=== PATIENT | male | born 1995 | race Caucasian/White ===

== ENCOUNTER 2016-12-29 23:54 | Emergency (ER) | payer OTHER ==
[2016-12-30] MEDS ORDERED: SODIUM CHLORIDE 0.9% 1,000 ML IV STA (00:15)
[2016-12-30 00:33] LABS: Basophils # (A) 0.1 k/uL (0-0.2); Basophils % (A) 1 %; CH 33.3; CHCM 36.4; Eosinophils % (A) 1 %; HCT 54.8 % (39.0-53.0); HDW 2.51; HGB 18.6 gm/dL (13.0-17.5); Luc % (Auto) 1; Lymphocytes # (A) 1.7 k/uL (1.0-4.8); Lymphocytes % (A) 20 %; MCH 31.2 pg (25.0-35.0); MCV 91.9 fL (80.0-100.0); Mean Platelet Volume 8.5; Monocytes # (A) 0.4 k/uL (0-1.0); Monocytes % (A) 5 %; Neutrophils # (A) 6.1 k/uL (1.3-7.7); Neutrophils % (A) 73 %; RBC 5.96 m/uL (4.30-5.90); RDW 13.7 % (11.5-15.5); WBC 8.4 k/uL (3.8-10.6); WBC (Perox) 8.07
[2016-12-30 00:40] LABS: Anion Gap 14 mmol/L; Blood Urea Nitrogen 8 mg/dL (9-20); Calcium 9.1 mg/dL (8.4-10.2); Carbon Dioxide 20 mmol/L (22-30); Chloride 105 mmol/L (98-107); Glucose 114 mg/dL (74-99); Magnesium 1.9 mg/dL (1.6-2.3); Non-African American GFR(MDRD) >60 (>60 ml/min/1.73 sqM); Potassium 3.7 mmol/L (3.5-5.1); Sodium 139 mmol/L (137-145); Total Protein 6.3 g/dL (6.3-8.2)
[2016-12-30 00:41] LABS: ALT 24 U/L (21-72); AST 21 U/L (17-59); Alkaline Phosphatase 39 U/L (38-126); Total Bilirubin 0.7 mg/dL (0.2-1.3)
[2016-12-30 00:46] LABS: INR 1.2 (<1.2); Partial Thromboplastin Time 22.2 sec (22.0-30.0); Prothrombin Time 11.6 sec (9.0-12.0)
[2016-12-30 00:52] LABS: Creatine Kinase 86 U/L (55-170)
[2016-12-30 01:05] LABS: Creatine Kinase MB 0.6 ng/mL (0.0-2.4); Troponin I <0.012 ng/mL (0.000-0.034)
--- NOTE | 2016-12-30 01:10 | XR ---
EXAM: XR Chest, 1 View CLINICAL HISTORY: Reason: chest pain TECHNIQUE: Frontal view of the chest. COMPARISON: No relevant prior studies available. FINDINGS: Lungs: Unremarkable. No consolidation. Pleural space: Unremarkable. No pneumothorax. Heart: Unremarkable. No cardiomegaly. Mediastinum: Unremarkable. Bones/joints: Unremarkable. IMPRESSION: Unremarkable chest x-ray.
[2016-12-30] MEDS ORDERED: RX INFO: IV CONTRAST WAS GIVEN 1 EACH MISC MISCELLANE PRN (01:59)
[2016-12-30 02:53] VITALS: RESP 18
--- NOTE | 2016-12-30 03:05 | CT ---
EXAM: CT Angiography Chest With Intravenous Contrast CLINICAL HISTORY: Reason: Pain TECHNIQUE: Axial computed tomographic angiography images of the chest with intravenous contrast using pulmonary embolism protocol. CTDI is 48.2 mGy and DLP is 182.3 mGy-cm. This CT exam was performed using one or more of the following dose reduction techniques: automated exposure control, adjustment of the mA and/or kV according to patient size, and/or use of iterative reconstruction technique. MIP reconstructed images were created and reviewed. Coronal and sagittal reformatted images were created and reviewed. COMPARISON: Chest x-ray dated 12/30/16. FINDINGS: Pulmonary arteries: Unremarkable. No pulmonary embolism. Aorta: No acute findings. No thoracic aortic aneurysm. Lungs: Biapical scarring. No mass. No consolidation. Pleural space: Unremarkable. No significant effusion. No pneumothorax. Heart: Unremarkable. No cardiomegaly. No significant pericardial effusion. No evidence of RV dysfunction. Bones/joints: Mild Schmorl's node formation. Mild S-shaped curvature to the upper thoracic spine. No acute fracture. No dislocation. Soft tissues: Unremarkable. Lymph nodes: Unremarkable. No enlarged lymph nodes. IMPRESSION: No evidence for pulmonary embolus or other acute cardiopulmonary findings.
[2016-12-30 03:56] VITALS: BP 145/82; PULSE 98
--- NOTE | 2016-12-30 04:16 | ED ---
Chest Pain HPI - General Chief Complaint: Chest Pain Stated Complaint: chest pain Time Seen by Provider: 12/30/16 00:15 Source: patient Mode of arrival: wheelchair Limitations: no limitations - History of Present Illness Initial Comments: This patient is a 19-year-old man who states that about hour ago he experienced a funny sensation in the substernal area of his chest, he is not able fully characterize it. Patient states there is no pain currently. MD Complaint: chest pain Onset/Timin -: hour(s) Onset: during rest Pain Location: substernal Pain Radiation: none Severity: mild Quality: other (Unable to characterize) Consistency: intermittent, now resolved Improves With: nothing Worsens With: nothing - Related Data Previous Rx's Medication Instructions Recorded Amoxicillin 500 mg PO Q8H #21 capsule 01/31/15 Clarithromycin [Biaxin] 500 mg PO Q12HR #14 tablet 01/31/15 Famotidine [Pepcid] 20 mg PO DAILY #60 tablet 01/31/15 Omeprazole [PriLOSEC] 20 mg PO AC-BID #60 cap 01/31/15 Famotidine [Pepcid] 20 mg PO DAILY #14 tablet 12/30/16 Allergies Allergy/AdvReac Type Severity Reaction Status Date / Time Sulfa (Sulfonamide Allergy Unknown Verified 01/31/15 14:07 Antibiotics) Review of Systems ROS Statement: Those systems with pertinent positive or pertinent negative responses have been documented in the HPI. ROS Other: All systems not noted in ROS Statement are negative. Constitutional: Denies: fever, chills Respiratory: Denies: cough, dyspnea Cardiovascular: Reports: as per HPI, chest pain, palpitations. Denies: edema, syncope Gastrointestinal: Denies: abdominal pain, nausea, vomiting Genitourinary: Denies: dysuria Musculoskeletal: Denies: back pain Skin: Denies: rash Neurological: Denies: headache, weakness, numbness Past Medical History Past Medical History: No Reported History History of Any Multi-Drug Resistant Organisms: None Reported Past Surgical History: No Surgical Hx Reported Past Psychological History: No Psychological Hx Reported Smoking Status: Current every day smoker Past Alcohol Use History: Occasional Past Drug Use History: Marijuana General Exam Limitations: no limitations General appearance: alert, in no apparent distress Head exam: Present: atraumatic, normocephalic Eye exam: Present: normal appearance Respiratory exam: Present: normal lung sounds bilaterally. Absent: respiratory distress, wheezes, rales, rhonchi, stridor Cardiovascular Exam: Present: regular rate, normal rhythm, normal heart sounds. Absent: systolic murmur, diastolic murmur, rubs, gallop GI/Abdominal exam: Present: soft. Absent: distended, tenderness, guarding, rebound Extremities exam: Present: normal inspection, normal capillary refill. Absent: pedal edema, calf tenderness Back exam: Present: normal inspection. Absent: CVA tenderness (R), CVA tenderness (L) Skin exam: Present: warm, dry, intact, normal color. Absent: rash Course Vital Signs 12/29/16 12/30/16 12/30/16 23:57 01:22 02:47 Temperature 97.1 F L Pulse Rate 137 H 108 H 104 H Respiratory 18 16 18 Rate Blood Pressure 129/79 132/66 133/72 O2 Sat by Pulse 100 100 99 Oximetry 12/30/16 12/30/16 03:54 04:23 Temperature 98.6 F Pulse Rate 98 98 Respiratory 18 18 Rate Blood Pressure 145/82 145/82 O2 Sat by Pulse 98 98 Oximetry Disposition Clinical Impression: Chest pain Disposition: HOME SELF-CARE Condition: Good Instructions: Chest Pain (ED) Prescriptions: Famotidine [Pepcid] 20 mg PO DAILY #14 tablet Referrals: None,Stated [Primary Care Provider] - 1-2 days
[2016-12-30 04:26] VITALS: TEMP 98.6
--- NOTE | 2017-01-03 07:18 | CDI ---
Documentation Clarification OP Dear Alex RAHMAN MD Please do addendum to ED report for HPI and physical exam. Thank you, Julieta Abernathy [employer] If you have any question, Please contact digital asset manager at [phone] [facility]
== END 2016-12-30 04:23 | disposition home or self-care (01) ==
LOC: MERGE 23:54 → EC 23:54
DX: R07.2 Precordial pain (principal); F17.200 Nicotine dependence, unspecified, uncomplicated; Z88.2 Allergy status to sulfonamides
CPT/HCPCS: 36415; 93005; 85379; 80053; 82550; 82553; 83735; 84484; 85025; 85610; 85730; 80306; 71010; 71275; 99285; 96360; Q9967

== ENCOUNTER 2019-01-17 21:53 | Emergency (ER) | payer OTHER ==
[2019-01-17] MEDS ORDERED: cefTRIAXone 250 MG VIAL IM STA (22:03)
[2019-01-17] MEDS ORDERED: AZITHROMYCIN 500 MG TAB PO STA (22:03)
--- NOTE | 2019-01-17 22:09 | ED ---
General Adult HPI - General Chief complaint: Back Pain/Injury Stated complaint: Abd Pain Time Seen by Provider: 01/17/19 21:59 Source: patient, RN notes reviewed, old records reviewed Mode of arrival: ambulatory Limitations: no limitations - History of Present Illness Initial comments: 23-year-old male patient with no pertinent past medical history is ED chief complaint of 2 days of dysuria, pain into his posterior low back. Patient does have some concern for possible STD. Denies any urethral drainage, denies any lesions or skin changes. Denies any hematuria. Systemic: Pt denies fatigue, fever/chills, rash. Pt denies weakness, night sweats, weight loss. Neuro: Pt denies headache, visual disturbances, syncope or pre-syncope. HEENT: Pt denies ocular discharge or irritation, otalgia, rhinorrhea, pharyngitis or notable lymphadenopathy. Cardiopulmonary: Pt denies chest pain, SOB, heart palpitations, dyspnea on exertion. Abdominal/GI: Pt denies abdominal pain, n/v/d. : Pt denies dysuria, burning w/ urination, frequency/urgency. Denies new onset urinary or bowel incontinence. MSK: Pt denies myalgia, loss of strength or function in extremities. Neuro: Pt denies new onset weakness, paresthesias. - Related Data Previous Rx's Medication Instructions Recorded Amoxicillin 500 mg PO Q8H #21 capsule 01/31/15 Clarithromycin [Biaxin] 500 mg PO Q12HR #14 tablet 01/31/15 Famotidine [Pepcid] 20 mg PO DAILY #60 tablet 01/31/15 Omeprazole [PriLOSEC] 20 mg PO AC-BID #60 cap 01/31/15 Famotidine [Pepcid] 20 mg PO DAILY #14 tablet 12/30/16 Allergies Allergy/AdvReac Type Severity Reaction Status Date / Time Sulfa (Sulfonamide Allergy Unknown Verified 01/17/19 21:57 Antibiotics) Review of Systems ROS Statement: Those systems with pertinent positive or pertinent negative responses have been documented in the HPI. ROS Other: All systems not noted in ROS Statement are negative. Past Medical History Past Medical History: No Reported History, Seizure Disorder Additional Past Medical History / Comment(s): Ulcer History of Any Multi-Drug Resistant Organisms: None Reported Past Surgical History: Ear Surgery, No Surgical Hx Reported Past Psychological History: No Psychological Hx Reported Smoking Status: Former smoker Past Alcohol Use History: Heavy, Occasional Past Drug Use History: Marijuana General Exam - General Exam Comments Initial Comments: Constitutional: NAD, AOX3, Pt has pleasant affect. HEENT: NC/AT, trachea midline, neck supple, no lymphadenopathy. Posterior pharynx non erythematous, without exudates. External ears appear normal, without discharge. Mucous membranes moist. Eyes PERRLA, EOM intact. There is no scleral icterus. No pallor noted. Cardiopulmonary: RRR, no murmurs, rubs or gallops, no JVD noted. Lungs CTAB in anterior and posterior mandujano. No peripheral edema. Abdominal exam: Abdomen soft and non-distended. Abdomen non-tender to palpation in all 4 quadrants. Bowel sounds active in LLQ. No hepatosplenomegaly. No ecchymosis. No CVA tenderness. Neuro: CN II-XII grossly intact. No nuchal rigidity. No raccon eyes, no kumar sign, no hemotympanum. No cervical spinal tenderness. MSK: No posterior calf tenderness bilaterally, homans sign negative bilaterally. Posterior tibialis and radial pulse +2 bilaterally. Sensation intact in upper and lower extremities. Full active ROM in upper and lower extremities, 5/5 stregnth. Limitations: no limitations Course Vital Signs 01/17/19 21:55 Temperature 98.1 F Pulse Rate 99 Respiratory 20 Rate Blood Pressure 163/108 O2 Sat by Pulse 97 Oximetry Medical Decision Making - Medical Decision Making 23-year-old male patient presents ED chief complaint of dysuria. No low back pain. Patient vital signs stable, afebrile. Physical exam did not display acute pathology. UA displayed 20 white blood cells, small leukocyte esterase. Patient was treated empirically for gonorrhea and Chlamydia. Futher history taking patient reports that he had a recent sexual encounter with an individual who he does not know well and experienced the dysuria shortly after. Urine culture pending. Patient will discharge, follow up with primary care provider. Case discussed with Dr. Arboleda. - Lab Data Lab Results 01/17/19 Range/Units 22:35 Urine Color Light Yellow Urine Appearance Clear (Clear) Urine pH 6.0 (5.0-8.0) Ur Specific [place] 1.007 (1.001-1.035) Urine Protein Negative (Negative) Urine Glucose (UA) Negative (Negative) Urine Ketones Negative (Negative) Urine Blood Negative (Negative) Urine Nitrite Negative (Negative) Urine Bilirubin Negative (Negative) Urine Urobilinogen <2.0 (<2.0) mg/dL Ur Leukocyte Esterase Small H (Negative) Urine RBC <1 (0-5) /hpf Urine WBC 20 H (0-5) /hpf Disposition Clinical Impression: Dysuria Disposition: HOME SELF-CARE Condition: Stable Instructions (If sedation given, give patient instructions): Dysuria (ED) Additional Instructions: Patient to adhere to previously discussed treatment plan and will take medication(s) as directed. Patient to follow up with PCP in 1-2 days. Patient to return to ED if symptoms do not improve. Follow-up with primary care provider, return to ER if condition worsens. Is patient prescribed a controlled substance at d/c from ED?: No Referrals: Dora Randall MD [Primary Care Provider] - 1-2 days
--- NOTE | 2019-01-17 22:37 | XR ---
EXAM: XR Abdomen, 1 View CLINICAL HISTORY: ITS.REASON XR Reason: Pain TECHNIQUE: Frontal supine view of the abdomen/pelvis. COMPARISON: No relevant prior studies available. FINDINGS: Gastrointestinal tract: Unremarkable. No dilation. Small phlebolith in the left pelvis. Bones/joints: Unremarkable. IMPRESSION: No acute disease or bowel obstruction.
[2019-01-17 22:48] LABS: Appearance,Urine Clear (Clear); Bilirubin,Urine Negative (Negative); Blood,Urine Negative (Negative); Color,Urine Light Yellow; Glucose,Urine (UA) Negative (Negative); Ketones,Urine Negative (Negative); Leukocyte Esterase,Urine Small (Negative); Nitrite,Urine Negative (Negative); Protein,Urine Negative (Negative); RBC,Urine <1 /hpf (0-5); Specific Gravity,Urine 1.007 (1.001-1.035); Urobilinogen,Urine <2.0 mg/dL (<2.0); WBC,Urine 20 /hpf (0-5)
[2019-01-17 23:22] VITALS: BP 146/97; PULSE 79; RESP 18; TEMP 98.8
== END 2019-01-17 23:21 | disposition home or self-care (01) ==
LOC: EC 21:53
DX: R30.0 Dysuria (principal); R82.998 Other abnormal findings in urine; Z87.891 Personal history of nicotine dependence; Z88.2 Allergy status to sulfonamides
CPT/HCPCS: 81001; 87491; 87591; 74018; 99284; 96372; J0696

== ENCOUNTER 2019-05-30 17:11 | Emergency (ER) | payer OTHER ==
--- NOTE | 2019-05-30 20:44 | ED ---
General Adult HPI - General Chief complaint: GI Bleed Stated complaint: blood in stool Time Seen by Provider: 05/30/19 19:15 Source: patient, RN notes reviewed, old records reviewed Mode of arrival: ambulatory Limitations: no limitations - History of Present Illness Initial comments: 24-year-old male patient with past mental history of reported GERD and seizure disorder presents to ED for chief complaint rectal bleeding. Patient reports that he is no longer on any antiepileptics, but slowly no longer needed them. Reports that approximately 2 to get a small amount of blood in his stool. Patient reports that today while at work he had a bowel movement and noticed red blood. Blood with wiping as well as blood on stool. Patient does report he has history of hemorrhoids. Reports he had a very mild amount of epigastric abdominal pain earlier today however that has resolved at this point. Denies any other complaints at this time. Systemic: Pt denies fatigue, fever/chills, rash. Pt denies weakness, night sweats, weight loss. Neuro: Pt denies headache, visual disturbances, syncope or pre-syncope. HEENT: Pt denies ocular discharge or irritation, otalgia, rhinorrhea, pharyngitis or notable lymphadenopathy. Cardiopulmonary: Pt denies chest pain, SOB, heart palpitations, dyspnea on exertion. Abdominal/GI: Pt denies n/v/d. : Pt denies dysuria, burning w/ urination, frequency/urgency. Denies new onset urinary or bowel incontinence. MSK: Pt denies myalgia, loss of strength or function in extremities. Neuro: Pt denies new onset weakness, paresthesias. - Related Data Previous Rx's Medication Instructions Recorded Amoxicillin 500 mg PO Q8H #21 capsule 01/31/15 Clarithromycin [Biaxin] 500 mg PO Q12HR #14 tablet 01/31/15 Famotidine [Pepcid] 20 mg PO DAILY #60 tablet 01/31/15 Omeprazole [PriLOSEC] 20 mg PO AC-BID #60 cap 01/31/15 Famotidine [Pepcid] 20 mg PO DAILY #14 tablet 12/30/16 Allergies Allergy/AdvReac Type Severity Reaction Status Date / Time Sulfa (Sulfonamide Allergy Unknown Verified 01/17/19 21:57 Antibiotics) Review of Systems ROS Statement: Those systems with pertinent positive or pertinent negative responses have been documented in the HPI. ROS Other: All systems not noted in ROS Statement are negative. Past Medical History Past Medical History: No Reported History, Seizure Disorder Additional Past Medical History / Comment(s): Ulcer History of Any Multi-Drug Resistant Organisms: None Reported Past Surgical History: Ear Surgery, No Surgical Hx Reported Past Psychological History: No Psychological Hx Reported Smoking Status: Former smoker Past Alcohol Use History: Heavy, Occasional Past Drug Use History: Marijuana General Exam - General Exam Comments Initial Comments: Constitutional: NAD, AOX3, Pt has pleasant affect. HEENT: NC/AT, trachea midline, neck supple, no lymphadenopathy. Posterior pharynx non erythematous, without exudates. External ears appear normal, without discharge. Mucous membranes moist. Eyes PERRLA, EOM intact. There is no scleral icterus. No pallor noted. Cardiopulmonary: RRR, no murmurs, rubs or gallops, no JVD noted. Lungs CTAB in anterior and posterior mandujano. No peripheral edema. Abdominal exam: Abdomen soft and non-distended. Abdomen non-tender to palpation in all 4 quadrants. Bowel sounds active in LLQ. No hepatosplenomegaly. No ecchymosis Neuro: CN II-XII grossly intact. No nuchal rigidity. No raccon eyes, no kumar sign, no hemotympanum. No cervical spinal tenderness. MSK: No posterior calf tenderness bilaterally, homans sign negative bilaterally. Posterior tibialis and radial pulse +2 bilaterally. Sensation intact in upper and lower extremities. Full active ROM in upper and lower extremities, 5/5 stregnth. Rectal: Rectal exam displayed internal hemorrhoid, no fissures noted, no bright red blood noted. Limitations: no limitations Course Vital Signs 05/30/19 17:59 Temperature 98.6 F Pulse Rate 89 Respiratory 18 Rate Blood Pressure 129/91 O2 Sat by Pulse 99 Oximetry Medical Decision Making - Medical Decision Making 24-year-old male patient with past mental history of reported GERD and seizure disorder presents to ED for chief complaint rectal bleeding. Patient reports that he is no longer on any antiepileptics, but slowly no longer needed them. Reports that approximately 2 to get a small amount of blood in his stool. Patient reports that today while at work he had a bowel movement and noticed red blood. Blood with wiping as well as blood on stool. Patient does report he has history of hemorrhoids. Reports he had a very mild amount of epigastric abdominal pain earlier today however that has resolved at this point. Denies any other complaints at this time. Patient vital signs stable. Physical exam displayed nontender abdomen, internal hemorrhoid noted. Other investigation are stable hemoglobin is 15. Called his positive. Patient will be discharged with outpatient surgical follow-up for internal hemorrhoid. Return to ER if condition worsens. Case discussed with Dr. Kearns. - Lab Data Result diagrams: 05/30/19 19:32 05/30/19 19:32 Lab Results 05/30/19 05/30/19 05/30/19 Range/Units 19:32 19:32 20:35 WBC 7.1 (3.8-10.6) k/uL RBC 5.07 (4.30-5.90) m/uL Hgb 15.4 (13.0-17.5) gm/dL Hct 45.9 (39.0-53.0) % MCV 90.5 (80.0-100.0) fL MCH 30.4 (25.0-35.0) pg MCHC 33.6 (31.0-37.0) g/dL RDW 11.3 L (11.5-15.5) % Plt Count 187 (150-450) k/uL Neutrophils % 66 % Lymphocytes % 24 % Monocytes % 5 % Eosinophils % 1 % Basophils % 1 % Neutrophils # 4.7 (1.3-7.7) k/uL Lymphocytes # 1.7 (1.0-4.8) k/uL Monocytes # 0.4 (0-1.0) k/uL Eosinophils # 0.1 (0-0.7) k/uL Basophils # 0.1 (0-0.2) k/uL Sodium 139 (137-145) mmol/L Potassium 4.3 (3.5-5.1) mmol/L Chloride 102 (98-107) mmol/L Carbon Dioxide 30 (22-30) mmol/L Anion Gap 7 mmol/L BUN 12 (9-20) mg/dL Creatinine 0.76 (0.66-1.25) mg/dL Est GFR (CKD-EPI)AfAm >90 (>60 ml/min/1.73 sqM) Est GFR (CKD-EPI)NonAf >90 (>60 ml/min/1.73 sqM) Glucose 91 (74-99) mg/dL Calcium 9.0 (8.4-10.2) mg/dL Total Bilirubin 0.6 (0.2-1.3) mg/dL AST 30 (17-59) U/L ALT 26 (4-49) U/L Alkaline Phosphatase 40 (38-126) U/L Total Protein 7.3 (6.3-8.2) g/dL Albumin 4.5 (3.5-5.0) g/dL Lipase 72 (23-300) U/L Stool Occult Blood Positive (Negative) Disposition Clinical Impression: Internal hemorrhoid Disposition: HOME SELF-CARE Condition: Stable Instructions (If sedation given, give patient instructions): Hemorrhoids (ED) Additional Instructions: Follow-up with primary care provider tomorrow. Follow-up with surgical consult tomorrow. Return to ER if condition worsens in any way. Is patient prescribed a controlled substance at d/c from ED?: No Referrals: Dora Randall MD [Primary Care Provider] - 1-2 days Kobe Hayden DO [Doctor of Osteopathic Medicine] - 1-2 days
[2019-05-30 20:47] LABS: Basophils # (A) 0.1 k/uL (0-0.2); Basophils % (A) 1 %; Eosinophils # (A) 0.1 k/uL (0-0.7); Eosinophils % (A) 1 %; HCT 45.9 % (39.0-53.0); HGB 15.4 gm/dL (13.0-17.5); Lymphocytes # (A) 1.7 k/uL (1.0-4.8); Lymphocytes % (A) 24 %; MCH 30.4 pg (25.0-35.0); MCHC 33.6 g/dL (31.0-37.0); MCV 90.5 fL (80.0-100.0); Monocytes # (A) 0.4 k/uL (0-1.0); Monocytes % (A) 5 %; Neutrophils # (A) 4.7 k/uL (1.3-7.7); Neutrophils % (A) 66 %; Platelet Count 187 k/uL (150-450); RBC 5.07 m/uL (4.30-5.90); RDW 11.3 % (11.5-15.5); WBC 7.1 k/uL (3.8-10.6)
[2019-05-30 20:55] LABS: ALT 26 U/L (4-49); AST 30 U/L (17-59); African American GFR (CKD) >90 (>60 ml/min/1.73 sqM); Albumin 4.5 g/dL (3.5-5.0); Alkaline Phosphatase 40 U/L (38-126); Anion Gap 7 mmol/L; Blood Urea Nitrogen 12 mg/dL (9-20); Carbon Dioxide 30 mmol/L (22-30); Chloride 102 mmol/L (98-107); Glucose 91 mg/dL (74-99); Non-African American GFR(CKD) >90 (>60 ml/min/1.73 sqM); Potassium 4.3 mmol/L (3.5-5.1); Sodium 139 mmol/L (137-145); Total Bilirubin 0.6 mg/dL (0.2-1.3); Total Protein 7.3 g/dL (6.3-8.2)
[2019-05-30 22:13] VITALS: BP 131/82; PULSE 85; RESP 17; TEMP 99.4
== END 2019-05-30 21:45 | disposition home or self-care (01) ==
LOC: EC 17:11
DX: K64.8 Other hemorrhoids (principal); Z88.2 Allergy status to sulfonamides; Z87.891 Personal history of nicotine dependence
CPT/HCPCS: 36415; 80053; 82272; 83690; 85025; 99285

== ENCOUNTER → 2019-11-14 | Outpatient (CLI) | payer OTHER ==
[2019-11-14 14:09] LABS: HCT 45.5 % (39.0-53.0); HGB 15.1 gm/dL (13.0-17.5); MCHC 33.1 g/dL (31.0-37.0); MCV 90.6 fL (80.0-100.0); Mean Platelet Volume 8.3; Platelet Count 142 k/uL (150-450); RBC 5.02 m/uL (4.30-5.90); RDW 11.7 % (11.5-15.5); WBC 4.9 k/uL (3.8-10.6)
[2019-11-14 19:24] LABS: T4, Free (Free Thyroxine) 1.3 ng/dL (0.80-1.80)
[2019-11-14 20:11] LABS: African American GFR (CKD) 137.1 (60.0-200.0); Albumin 4.3 g/dL (3.80-4.90); Albumin/Globulin Ratio 2.05 (1.60-3.17); Anion Gap 5.1 mmol/L (4.00-12.00); BUN/Creat Ratio 13.33 Ratio (12.00-20.00); Carbon Dioxide 28.9 mmol/L (21.6-31.8); Globulin 2.1 g/dL (1.6-3.3); Non-African American GFR(CKD) 118.3 (60.0-200.0); Potassium 4.3 mmol/L (3.5-5.5); Total Bilirubin 0.7 mg/dL (0.2-1.2); Total Protein 6.4 g/dL (6.2-8.2)
[2019-11-14 21:19] LABS: Hemoglobin A1C 5.1 % (4.0-6.0)
== END | disposition home or self-care (01) ==
LOC: LABWHC1 13:20
PROVIDERS: ATTEND Internal Medicine
DX: R42 Dizziness and giddiness (principal); E16.2 Hypoglycemia, unspecified
CPT/HCPCS: 36415; 80053; 83036; 84439; 84443; 85027

== ENCOUNTER 2021-04-17 16:23 | Emergency (ER) | payer OTHER ==
--- NOTE | 2021-04-17 17:22 | ED ---
General Adult HPI - General Source: RN notes reviewed <Kody Woods - Last Filed: 04/17/21 17:19> <Ragini Roy - Last Filed: 04/17/21 19:28> - General Stated complaint: fever, SOB, chest discomfort - History of Present Illness Initial comments: 25-year-old male presents to the emergency room for a chief complaint of cough. Since Sunday patient has had a cough and congestion. States his chest hurts to press on it and a cough. Patient was exposed to COVID-19, patient's girlfriend tested positive. Not vaccinated. Patient has no other complaints at this time including shortness of breath, abdominal pain, nausea or vomiting, headache, or visual changes. (Kody Woods) - Related Data Previous Rx's Medication Instructions Recorded Amoxicillin 500 mg PO Q8H #21 capsule 01/31/15 Clarithromycin [Biaxin] 500 mg PO Q12HR #14 tablet 01/31/15 Famotidine [Pepcid] 20 mg PO DAILY #60 tablet 01/31/15 Omeprazole [PriLOSEC] 20 mg PO AC-BID #60 cap 01/31/15 Famotidine [Pepcid] 20 mg PO DAILY #14 tablet 12/30/16 Dexamethasone 6 mg PO DAILY #10 tablet 04/17/21 guaiFENesin-DM 600/30MG [Mucinex 2 each PO Q12HR PRN #20 tab 04/17/21 Dm] Allergies Allergy/AdvReac Type Severity Reaction Status Date / Time Sulfa (Sulfonamide Allergy Unknown Verified 04/17/21 17:20 Antibiotics) Review of Systems ROS Other: All systems not noted in ROS Statement are negative. <Kody Woods - Last Filed: 04/17/21 17:19> ROS Other: All systems not noted in ROS Statement are negative. <Ragini Roy - Last Filed: 04/17/21 19:28> ROS Statement: Those systems with pertinent positive or pertinent negative responses have been documented in the HPI. Past Medical History Past Medical History: No Reported History, Seizure Disorder Additional Past Medical History / Comment(s): Ulcer History of Any Multi-Drug Resistant Organisms: None Reported Past Surgical History: Ear Surgery, No Surgical Hx Reported Past Psychological History: No Psychological Hx Reported Past Alcohol Use History: Heavy, Occasional Past Drug Use History: Marijuana <Kody Woods - Last Filed: 04/17/21 17:19> General Exam General appearance: alert, in no apparent distress Head exam: Present: atraumatic Eye exam: Present: normal appearance, PERRL, EOMI ENT exam: Present: normal exam, mucous membranes moist Neck exam: Present: normal inspection, full ROM. Absent: tenderness Respiratory exam: Present: normal lung sounds bilaterally, chest wall tenderness. Absent: respiratory distress, wheezes Cardiovascular Exam: Present: regular rate, normal rhythm, normal heart sounds <Kody Woods - Last Filed: 04/17/21 17:19> Course Vital Signs 04/17/21 17:16 Temperature 97.9 F Pulse Rate 76 Respiratory 18 Rate Blood Pressure 124/82 O2 Sat by Pulse 99 Oximetry EKG Findings - EKG Comments: EKG Findings:: Obtained at 1729 shows normal sinus rhythm with a ventricular rate of 68, NJ interval 144, QRS duration 90, QT 382, QTc 406. No evidence of ST elevation or depression. <Ragini Roy - Last Filed: 04/17/21 19:28> Medical Decision Making - Radiology Data Radiology results: report reviewed, image reviewed <Ragini Roy - Last Filed: 04/17/21 19:28> - Medical Decision Making 25-year-old male patient presented for evaluation of cough, chest tightness, shortness of breath. He did test positive for COVID-19. Chest x-ray was clear. Vital signs upon presentation were normal. I went to reevaluate the patient he had just left the department. Was able to contact him by phone and informed him of his results including positive COVID test. I did send prescriptions for Mucinex D M and dexamethasone to his pharmacy. He is instructed to follow-up with his primary care physician for recheck in 1-2 days. Return parameters were discussed in detail. He verbalizes understanding and agrees with this plan. My attending is Dr. Arboleda. (Ragini Roy) - Lab Data Lab Results 04/17/21 Range/Units 17:20 Coronavirus (PCR) Detected A (Not Detectd) - Radiology Data Two-view x-ray of the chest is obtained. Report was reviewed in its entirety. Impression by Dr. Ostermann shows normal chest. No change. (Ragini Roy) Disposition <Kody Woods Lore - Last Filed: 04/17/21 17:19> Is patient prescribed a controlled substance at d/c from ED?: No Time of Disposition: 19:17 <Ragini Roy - Last Filed: 04/17/21 19:28> Clinical Impression: COVID-19 Disposition: HOME SELF-CARE Condition: Good Instructions (If sedation given, give patient instructions): Coronavirus Disease 2019 (COVID-19) Additional Instructions: Tips to help you feel better: -Maintain adequate fluid intake - especially water. -Rest, you are healing your body will require extra sleep. -Eat even if you do not feel like it - broth, jello, toast are fine if you cannot eat full meals. -Take tylenol and motrin alternating (if you have no allergies or have not been instructed to avoid these medications) to help with body aches and fevers. -Obtain over the counter vitamin C, zinc, and vitamin D3. -Take medications as prescribed. Follow-up with your primary care physician for recheck in 1-2 days. Return for any new, worsening, or concerning symptoms. Prescriptions: Dexamethasone 6 mg PO DAILY #10 tablet guaiFENesin-DM 600/30MG [Mucinex Dm] 2 each PO Q12HR PRN #20 tab PRN Reason: Cough Referrals: Dora Randall MD [Primary Care Provider] - 1-2 days
--- NOTE | 2021-04-17 17:44 | XR ---
EXAMINATION TYPE: XR chest 2V DATE OF EXAM: 04/17/2021 COMPARISON: 12/30/2016 HISTORY: Cough TECHNIQUE: FINDINGS: Heart and mediastinum are normal. Lungs are clear. Diaphragm is normal. Bony thorax appears normal. IMPRESSION: Normal chest. No change.
[2021-04-17 19:31] VITALS: BP 122/77; PULSE 74; RESP 16; TEMP 98
== END 2021-04-17 19:30 | disposition home or self-care (01) ==
LOC: EC 16:23
DX: U07.1 COVID-19 (principal); Z88.2 Allergy status to sulfonamides
CPT/HCPCS: 71046; 87635; 93005; 99285

== ENCOUNTER 2021-09-17 12:48 | Emergency (ER) | payer OTHER ==
[2021-09-17 12:51] VITALS: TEMP 97.1
--- NOTE | 2021-09-17 13:21 | ED ---
General Adult HPI - General Chief complaint: Abdominal Pain Stated complaint: rt sided abd pain Time Seen by Provider: 09/17/21 13:07 Source: patient Mode of arrival: ambulatory Limitations: no limitations - History of Present Illness Initial comments: Dictation was produced using [employer] dictation software. please excuse any grammatical, word or spelling errors. Chief Complaint: 26-year-old presents emergency Department right upper quadrant abdominal pain History of Present Illness: 26-year-old male who presents emergency department for 7 days of right upper quadrant abdominal pain. Patient states his pain has been ongoing for the last 7 days. Localized to the right upper quadrant. No fevers. No nausea vomiting. No diarrhea. Patient denies any coughing. Does not drink alcohol on a regular basis. Denies any jaundice. Denies any changes in urinary symptoms. The ROS documented in this emergency department record has been reviewed and confirmed by me. Those systems with pertinent positive or negative responses h ave been documented in the HPI. All other systems are other negative and/or noncontributory. PHYSICAL EXAM: General Impression: Alert and oriented x3, not in acute distress HEENT: Normocephalic atraumatic, extra-ocular movements intact, pupils equal and reactive to light bilaterally, mucous membranes moist. Cardiovascular: Heart regular rate and rhythm Chest: Able to complete full sentences, no retractions, no tachypnea Abdomen: abdomen soft, negative Edmonds sign, mild palpatory tenderness to the right upper quadrant, non-distended, no organomegaly Musculoskeletal: Pulses present and equal in all extremities, no peripheral edema Motor: no focal deficits noted Neurological: CN II-XII grossly intact, no focal motor or sensory deficits noted Skin: Intact with no visualized rashes Psych: Normal affect and mood ED course: 26-year-old male presents to the emergency Department with right u pper quadrant abdominal pain. Patient well appearing at the bedside. Vital signs upon arrival are within acceptable limits. Laboratory evaluation obtained. CBC and metabolic panel is unremarkable. Abdominal labs are negative. Ultrasound of the abdomen is unremarkable. Patient reevaluated bedside 2:00 PM findings to medical condition. Patient be discharged advised to follow-up with primary care doctor. - Related Data Previous Rx's Medication Instructions Recorded Amoxicillin 500 mg PO Q8H #21 capsule 01/31/15 Clarithromycin [Biaxin] 500 mg PO Q12HR #14 tablet 01/31/15 Famotidine [Pepcid] 20 mg PO DAILY #60 tablet 01/31/15 Omeprazole [PriLOSEC] 20 mg PO AC-BID #60 cap 01/31/15 Famotidine [Pepcid] 20 mg PO DAILY #14 tablet 12/30/16 Dexamethasone 6 mg PO DAILY #10 tablet 04/17/21 guaiFENesin-DM 600/30MG [Mucinex 2 each PO Q12HR PRN #20 tab 04/17/21 Dm] Allergies Allergy/AdvReac Type Severity Reaction Status Date / Time Sulfa (Sulfonamide Allergy Unknown Verified 09/17/21 12:51 Antibiotics) Review of Systems ROS Statement: Those systems with pertinent positive or pertinent negative responses have been documented in the HPI. ROS Other: All systems not noted in ROS Statement are negative. Past Medical History Past Medical History: Seizure Disorder Additional Past Medical History / Comment(s): Ulcer History of Any Multi-Drug Resistant Organisms: None Reported Past Surgical History: Ear Surgery Past Psychological History: No Psychological Hx Reported Smoking Status: Vaper Past Alcohol Use History: Occasional Past Drug Use History: Marijuana General Exam Limitations: no limitations Course Vital Signs 09/17/21 12:49 Temperature 97.1 F L Pulse Rate 91 Respiratory 20 Rate Blood Pressure 123/81 O2 Sat by Pulse 100 Oximetry Medical Decision Making - Lab Data Result diagrams: 09/17/21 13:21 09/17/21 13:21 Lab Results 09/17/21 09/17/21 Range/Units 13:21 13:21 WBC 4.8 (3.8-10.6) k/uL RBC 4.94 (4.30-5.90) m/uL Hgb 15.3 (13.0-17.5) gm/dL Hct 45.5 (39.0-53.0) % MCV 92.2 (80.0-100.0) fL MCH 31.0 (25.0-35.0) pg MCHC 33.6 (31.0-37.0) g/dL RDW 12.3 (11.5-15.5) % Plt Count 238 (150-450) k/uL MPV 7.8 Neutrophils % 64 % Lymphocytes % 27 % Monocytes % 6 % Eosinophils % 1 % Basophils % 1 % Neutrophils # 3.1 (1.3-7.7) k/uL Lymphocytes # 1.3 (1.0-4.8) k/uL Monocytes # 0.3 (0-1.0) k/uL Eosinophils # 0.1 (0-0.7) k/uL Basophils # 0.0 (0-0.2) k/uL Sodium 138 (137-145) mmol/L Potassium 4.3 (3.5-5.1) mmol/L Chloride 103 (98-107) mmol/L Carbon Dioxide 28 (22-30) mmol/L Anion Gap 7 mmol/L BUN 13 (9-20) mg/dL Creatinine 0.79 (0.66-1.25) mg/dL Est GFR (CKD-EPI)AfAm >90 (>60 ml/min/1.73 sqM) Est GFR (CKD-EPI)NonAf >90 (>60 ml/min/1.73 sqM) Glucose 95 (74-99) mg/dL Calcium 8.9 (8.4-10.2) mg/dL Total Bilirubin 0.9 (0.2-1.3) mg/dL AST 25 (17-59) U/L ALT 28 (4-49) U/L Alkaline Phosphatase 34 L (38-126) U/L Total Protein 7.0 (6.3-8.2) g/dL Albumin 4.1 (3.5-5.0) g/dL Lipase 86 (23-300) U/L Disposition Clinical Impression: Abdominal pain Disposition: HOME SELF-CARE Condition: Good Instructions (If sedation given, give patient instructions): Abdominal Pain (ED) Is patient prescribed a controlled substance at d/c from ED?: No Referrals: Dora Randall MD [Primary Care Provider] - 1-2 days
[2021-09-17 13:30] LABS: Basophils % (A) 1 %; Eosinophils # (A) 0.1 k/uL (0-0.7); Eosinophils % (A) 1 %; HCT 45.5 % (39.0-53.0); HGB 15.3 gm/dL (13.0-17.5); Lymphocytes # (A) 1.3 k/uL (1.0-4.8); Lymphocytes % (A) 27 %; MCHC 33.6 g/dL (31.0-37.0); MCV 92.2 fL (80.0-100.0); Mean Platelet Volume 7.8; Monocytes # (A) 0.3 k/uL (0-1.0); Monocytes % (A) 6 %; Neutrophils # (A) 3.1 k/uL (1.3-7.7); Neutrophils % (A) 64 %; Platelet Count 238 k/uL (150-450); RBC 4.94 m/uL (4.30-5.90); RDW 12.3 % (11.5-15.5); WBC 4.8 k/uL (3.8-10.6)
[2021-09-17 13:46] LABS: ALT 28 U/L (4-49); AST 25 U/L (17-59); African American GFR (CKD) >90 (>60 ml/min/1.73 sqM); Albumin 4.1 g/dL (3.5-5.0); Alkaline Phosphatase 34 U/L (38-126); Anion Gap 7 mmol/L; Blood Urea Nitrogen 13 mg/dL (9-20); Calcium 8.9 mg/dL (8.4-10.2); Carbon Dioxide 28 mmol/L (22-30); Chloride 103 mmol/L (98-107); Glucose 95 mg/dL (74-99); Lipase 86 U/L (23-300); Non-African American GFR(CKD) >90 (>60 ml/min/1.73 sqM); Potassium 4.3 mmol/L (3.5-5.1); Sodium 138 mmol/L (137-145); Total Bilirubin 0.9 mg/dL (0.2-1.3)
--- NOTE | 2021-09-17 13:57 | US ---
EXAMINATION TYPE: US abdomen limited DATE OF EXAM: 09/17/2021 COMPARISON: NONE CLINICAL HISTORY: ruq. pain EXAM MEASUREMENTS: Liver Length: 12.7 cm Gallbladder Wall: 0.2 cm CBD: 0.3 cm Right Kidney: 11.5 x 3.9 x 5.9 cm Pancreas: visualized portions wnl Liver: wnl Gallbladder: No stones seen Evidence for sonographic Edmonds's sign: Yes CBD: wnl Right Kidney: No hydronephrosis or masses seen IMPRESSION: 1. Normal right upper quadrant ultrasound
[2021-09-17 14:19] VITALS: BP 116/86; PULSE 76; RESP 16
== END 2021-09-17 14:19 | disposition home or self-care (01) ==
LOC: EC 12:48
DX: R10.11 Right upper quadrant pain (principal); F17.209 Nicotine dependence, unspecified, with unspecified nicotine-induced disorders; Z88.2 Allergy status to sulfonamides
CPT/HCPCS: 36415; 76705; 80053; 83690; 85025; 99284

== ENCOUNTER 2021-11-03 01:23 | Emergency (ER) | payer OTHER ==
[2021-11-03 01:27] VITALS: BP 133/86; PULSE 103; TEMP 97.6
--- NOTE | 2021-11-03 02:23 | ED ---
SOB HPI - General Chief Complaint: Shortness of Breath Stated Complaint: ARNOLDO Time Seen by Provider: 11/03/21 02:08 Source: patient Mode of arrival: ambulatory Limitations: no limitations - History of Present Illness Initial Comments: This patient is 26-year-old man who presents with complaint that he developed coughing episode and some shortness of breath. The patient states it occurred around 1 AM. He had been using his electronic vape. Patient states that he thought he might have choked on some saliva or inhaled improperly. When he was not able to catch his breath after. Time he felt he should be seen here. The patient does note that the symptoms have markedly improved since that time. No fever or chills noted. No chest pain. MD Complaint: shortness of breath, cough -: hour(s) Severity scale (1-10): 0 Consistency: now resolved Improves With: nothing Worsens With: nothing Associated Symptoms: denies other symptoms Treatments Prior to Arrival: none - Related Data Previous Rx's Medication Instructions Recorded Amoxicillin 500 mg PO Q8H #21 capsule 01/31/15 Clarithromycin [Biaxin] 500 mg PO Q12HR #14 tablet 01/31/15 Famotidine [Pepcid] 20 mg PO DAILY #60 tablet 01/31/15 Omeprazole [PriLOSEC] 20 mg PO AC-BID #60 cap 01/31/15 Famotidine [Pepcid] 20 mg PO DAILY #14 tablet 12/30/16 dexAMETHasone [Dexamethasone] 6 mg PO DAILY #10 tablet 04/17/21 guaiFENesin-DM 600/30MG [Mucinex 2 each PO Q12HR PRN #20 tab 04/17/21 Dm] Allergies Allergy/AdvReac Type Severity Reaction Status Date / Time Sulfa (Sulfonamide Allergy Unknown Verified 11/03/21 01:27 Antibiotics) Review of Systems ROS Statement: Those systems with pertinent positive or pertinent negative responses have been documented in the HPI. ROS Other: All systems not noted in ROS Statement are negative. Constitutional: Denies: fever, chills, weakness Respiratory: Reports: as per HPI, cough, dyspnea. Denies: wheezes, hemoptysis, stridor Cardiovascular: Denies: chest pain, syncope Gastrointestinal: Denies: abdominal pain, vomiting Musculoskeletal: Denies: back pain Neurological: Denies: headache Past Medical History Past Medical History: Seizure Disorder Additional Past Medical History / Comment(s): Ulcer History of Any Multi-Drug Resistant Organisms: None Reported Past Surgical History: Ear Surgery Past Psychological History: No Psychological Hx Reported Smoking Status: Vaper Past Alcohol Use History: Occasional Past Drug Use History: Marijuana General Exam Limitations: no limitations General appearance: alert, in no apparent distress Head exam: Present: atraumatic, normocephalic Eye exam: Present: normal appearance. Absent: scleral icterus, conjunctival injection Neck exam: Present: normal inspection Respiratory exam: Present: normal lung sounds bilaterally. Absent: respiratory distress, wheezes, rales, rhonchi, stridor Cardiovascular Exam: Present: regular rate, normal rhythm, normal heart sounds. Absent: systolic murmur, diastolic murmur, rubs, gallop GI/Abdominal exam: Present: soft. Absent: tenderness, guarding, rebound Extremities exam: Present: normal inspection, normal capillary refill. Absent: pedal edema, calf tenderness Back exam: Present: normal inspection. Absent: CVA tenderness (R), CVA tenderness (L) Neurological exam: Present: alert Skin exam: Present: warm, dry, intact, normal color. Absent: rash Course Vital Signs 11/03/21 11/03/21 01:23 02:30 Temperature 97.6 F Pulse Rate 103 H Respiratory 20 16 Rate Blood Pressure 133/86 O2 Sat by Pulse 96 Oximetry Medical Decision Making - Medical Decision Making The patient's symptoms had resolved and he was feeling well the patient was waiting for x-ray results and decided to leave. Stable at the time he was leaving Disposition Clinical Impression: Acute bronchospasm Disposition: HOME SELF-CARE Condition: Good Instructions (If sedation given, give patient instructions): Bronchospasm (ED) Is patient prescribed a controlled substance at d/c from ED?: No Referrals: Dora Randall MD [Primary Care Provider] - 1-2 days Time of Disposition: 03:25
[2021-11-03 03:20] VITALS: RESP 16
--- NOTE | 2021-11-03 04:27 | XR ---
EXAM: XR Chest, 2 Views CLINICAL HISTORY: XR Reason: cough TECHNIQUE: Frontal and lateral views of the chest. COMPARISON: April 17, 2021 FINDINGS: Lungs: Unremarkable. No consolidation. Pleural space: Unremarkable. No pneumothorax. Heart: Unremarkable. No cardiomegaly. Mediastinum: Unremarkable. Bones/joints: Unremarkable. Upper abdomen: There is no pneumoperitoneum under the diaphragm. IMPRESSION: No acute findings in the chest.
== END 2021-11-03 03:28 | disposition home or self-care (01) ==
LOC: EC 01:23
DX: J98.01 Acute bronchospasm (principal); F17.290 Nicotine dependence, other tobacco product, uncomplicated; Z88.2 Allergy status to sulfonamides
CPT/HCPCS: 71046; 99284

== ENCOUNTER 2022-02-03 04:15 | Emergency (ER) | payer OTHER ==
[2022-02-03 04:39] VITALS: PULSE 98; RESP 18; TEMP 98.7
--- NOTE | 2022-02-03 05:16 | XR ---
EXAMINATION TYPE: XR forearm LT DATE OF EXAM: 02/03/2022 COMPARISON: NONE HISTORY: Fall. Pain TECHNIQUE: 2 views FINDINGS: Radius and ulna appear intact. There is nondisplaced chip fracture of the lateral aspect of the radial head fragment measures 10 mm. Carpal bones are intact. IMPRESSION: Acute nondisplaced intra-articular chip fracture of the radial head.
--- NOTE | 2022-02-03 05:54 | ED ---
General Adult HPI - General Chief complaint: Extremity Injury, Upper Stated complaint: Arm injury Time Seen by Provider: 02/03/22 04:25 Source: patient, RN notes reviewed, old records reviewed Mode of arrival: ambulatory - History of Present Illness Initial comments: 26-year-old male presenting with left elbow and forearm injury. Patient was skateboarding, fell onto outstretched hand. He developed pain in the proximal forearm and left elbow with any movement. No head or neck injury. No other pain complaints. - Related Data Previous Rx's Medication Instructions Recorded Amoxicillin 500 mg PO Q8H #21 capsule 01/31/15 Clarithromycin [Biaxin] 500 mg PO Q12HR #14 tablet 01/31/15 Famotidine [Pepcid] 20 mg PO DAILY #60 tablet 01/31/15 Omeprazole [PriLOSEC] 20 mg PO AC-BID #60 cap 01/31/15 Famotidine [Pepcid] 20 mg PO DAILY #14 tablet 12/30/16 dexAMETHasone [Dexamethasone] 6 mg PO DAILY #10 tablet 04/17/21 guaiFENesin-DM 600/30MG [Mucinex 2 each PO Q12HR PRN #20 tab 04/17/21 Dm] Ibuprofen [Motrin] 600 mg PO Q8HR PRN #24 tab 02/03/22 Allergies Allergy/AdvReac Type Severity Reaction Status Date / Time Sulfa (Sulfonamide Allergy Unknown Verified 02/03/22 04:39 Antibiotics) Review of Systems ROS Statement: Those systems with pertinent positive or pertinent negative responses have been documented in the HPI. ROS Other: All systems not noted in ROS Statement are negative. Past Medical History Past Medical History: Seizure Disorder Additional Past Medical History / Comment(s): Ulcer History of Any Multi-Drug Resistant Organisms: None Reported Past Surgical History: Ear Surgery Past Psychological History: No Psychological Hx Reported Smoking Status: Vaper Past Alcohol Use History: Occasional Past Drug Use History: Marijuana General Exam General appearance: alert, in no apparent distress Head exam: Present: atraumatic, normocephalic Eye exam: Present: normal appearance, PERRL ENT exam: Present: normal exam Neck exam: Present: normal inspection. Absent: tenderness, meningismus Respiratory exam: Present: normal lung sounds bilaterally. Absent: respiratory distress, wheezes Cardiovascular Exam: Present: regular rate, normal rhythm GI/Abdominal exam: Present: soft. Absent: distended, tenderness, guarding Extremities exam: Present: normal inspection, tenderness, normal capillary refill, other (pain with ROM left elbow). Absent: full ROM, joint swelling Course Vital Signs 02/03/22 04:36 Temperature 98.7 F Pulse Rate 98 Respiratory 18 Rate O2 Sat by Pulse 99 Oximetry Procedures - Orthopedic Splinting/Casting Injury #1 Side: left Upper Extremity Injury Location: elbow Upper Extremity Immobilizer: posterior splint Medical Decision Making - Medical Decision Making 26-year-old male with left forearm and elbow injury, x-ray performed, showing a nondisplaced radial head fracture. Patient placed in a posterior mold splint and given orthopedic follow-up. He will take Motrin for pain. He will ice and elevate. Disposition Clinical Impression: Radial head fracture, closed Disposition: HOME SELF-CARE Condition: Good Instructions (If sedation given, give patient instructions): Elbow Fracture (ED) Prescriptions: Ibuprofen [Motrin] 600 mg PO Q8HR PRN #24 tab PRN Reason: Pain Is patient prescribed a controlled substance at d/c from ED?: No Referrals: Dora Randall MD [Primary Care Provider] - 1-2 days Wing Sneed DO [Doctor of Osteopathic Medicine] - 1-2 days Time of Disposition: 05:54
== END 2022-02-03 06:49 | disposition home or self-care (01) ==
LOC: EC 04:15
DX: S52.125A Nondisplaced fracture of head of left radius, initial encounter for closed fracture (principal); Z86.69 Personal history of other diseases of the nervous system and sense organs; F17.290 Nicotine dependence, other tobacco product, uncomplicated; Z88.2 Allergy status to sulfonamides; V00.131A Fall from skateboard, initial encounter; Y93.51 Activity, roller skating (inline) and skateboarding
CPT/HCPCS: 29125; 99283

== ENCOUNTER 2022-06-15 20:05 | Emergency (ER) | payer OTHER ==
[2022-06-15 20:18] VITALS: RESP 16; TEMP 98.7
--- NOTE | 2022-06-15 20:51 | ED ---
GI Bleed HPI - General Chief complaint: GI Bleed Stated complaint: blood in stool Time Seen by Provider: 06/15/22 20:41 Source: patient, family, RN notes reviewed, old records reviewed Mode of arrival: ambulatory Limitations: no limitations - History of Present Illness Initial comments: 27-year-old male presents to the emergency room with complaints of 2 episodes of dark red stool. He does have a history of this and had a colonoscopy 2 years ago. Has not taken medicine in a daily basis. Does have a history of seizures and ulcers. MD complaint: blood streaked stool Severity scale (1-10): 0 Quality: painless Consistency: intermittent (Intermittent over the past couple of years) Context: history of GI bleed Associated Symptoms: denies other symptoms - Related Data Previous Rx's Medication Instructions Recorded Amoxicillin 500 mg PO Q8H #21 capsule 01/31/15 Clarithromycin [Biaxin] 500 mg PO Q12HR #14 tablet 01/31/15 Famotidine [Pepcid] 20 mg PO DAILY #60 tablet 01/31/15 Omeprazole [PriLOSEC] 20 mg PO AC-BID #60 cap 01/31/15 Famotidine [Pepcid] 20 mg PO DAILY #14 tablet 12/30/16 dexAMETHasone [Dexamethasone] 6 mg PO DAILY #10 tablet 04/17/21 guaiFENesin-DM 600/30MG [Mucinex 2 each PO Q12HR PRN #20 tab 04/17/21 Dm] Ibuprofen [Motrin] 600 mg PO Q8HR PRN #24 tab 02/03/22 Allergies Allergy/AdvReac Type Severity Reaction Status Date / Time Sulfa (Sulfonamide Allergy Unknown Verified 02/03/22 04:39 Antibiotics) Review of Systems ROS Statement: Those systems with pertinent positive or pertinent negative responses have been documented in the HPI. ROS Other: All systems not noted in ROS Statement are negative. Past Medical History Past Medical History: Seizure Disorder Additional Past Medical History / Comment(s): Ulcer History of Any Multi-Drug Resistant Organisms: None Reported Past Surgical History: Ear Surgery Past Psychological History: No Psychological Hx Reported Smoking Status: Vaper Past Alcohol Use History: Occasional Past Drug Use History: Marijuana General Exam Limitations: no limitations General appearance: alert, in no apparent distress Head exam: Present: atraumatic Eye exam: Present: normal appearance. Absent: scleral icterus, conjunctival injection, periorbital swelling Neck exam: Absent: tenderness, meningismus Respiratory exam: Present: normal lung sounds bilaterally. Absent: respiratory distress, accessory muscle use Cardiovascular Exam: Present: regular rate GI/Abdominal exam: Present: soft. Absent: distended, tenderness, guarding, rebound, rigid Rectal exam: Present: normal inspection, normal rectal tone. Absent: decreased rectal tone, black stool, bloody stool, fecal impaction, hemorrhoids, mass, tenderness Extremities exam: Present: normal capillary refill. Absent: pedal edema, calf tenderness Back exam: Present: normal inspection, full ROM. Absent: tenderness, rash noted Neurological exam: Present: alert, oriented X3 Psychiatric exam: Present: normal affect, normal mood Skin exam: Present: warm, dry, intact, normal color. Absent: cyanosis, diaphoretic, petechiae, pallor Course Vital Signs 06/15/22 20:13 Temperature 98.7 F Pulse Rate 89 Respiratory 16 Rate Blood Pressure 124/88 O2 Sat by Pulse 98 Oximetry Medical Decision Making - Medical Decision Making 24-year-old well-appearing male presents with 2 episodes of dark red stool this morning. He states he has had intermittent rectal bleeding over the past 2 years. States had a colonoscopy about 2 years ago that was negative. Does not remember the name of Dr. Denies any other abnormal bleeding. No dysuria or hematuria. No abdominal pain. According to medical records in May 2019 rectal exam revealed an internal hemorrhoid that time. Rectal exam today shows no masses or external hemorrhoids. No fissures. Good rectal tone with no gross blood. Patient is hemodynamically stable. Hemoglobin and hematocrit are stable at 14.4 and 40.8 respectively. Platelet count 147. Stool for occult blood is negative. On physical exam there is no evidence of external hemorrhoids. Patient will be discharged home with referral to GI. He is agreeable to this plan of care. Case discussed with Dr. Rodríguez Was pt. sent in by a medical professional or institution? @ -no Did you speak to anyone other than the patient for history? @ -no Did you review nursing and triage notes? @ -yes i agree Were old charts reviewed? @ -yes previous ER records Differential Diagnosis? @ -Differential GI Bleed: Esophageal varices, aortoenteric fistula, Regine-Mckay, gastritis, peptic ulcer disease, diverticulosis, inflammatory bowel disease, hemorrhoids, fissure, colitis, malignancy, Meckels diverticulum, this is not meant to be an all- inclusive list. What testing was considered but not performed? (CT, X-rays, U/S, labs)? Why? @CT was considered however abdomen is soft and nontender. Vital signs are stable. Hemoglobin and hematocrit is stable. Occult blood negative. He does have a documented history of internal hemorrhoids. What meds were considered but not given? Why? @ -none Did you discuss the management of the patient with other professionals? @ -no Did you reconcile home meds? @ -no Was smoking cessation discussed for >3mins.? @ -[none] Was critical care preformed (if so, how long)? @ -no Were there social determinants of health that impacted care today? How? (Homelessness, low income, unemployed, alcoholism, drug addiction, transpor tation, low edu. Level, literacy, decrease access to med. care, custodial, rehab)? @ -none Was there de-escalation of care discussed even if they declined? (Discuss DNR or withdrawal of care, Hospice)? @ -no What co-morbidities impacted this encounter? (DM, HTN, Smoking, COPD, CAD, Cancer, CVA, Hep., AIDS, mental health diagnosis, sleep apnea, morbid obesity)? @ -GERD, ulcers, seizure Was patient admitted / discharged? @ -Discharged Undiagnosed new problem with uncertain prognosis? @ -[none] Drug Therapy requiring intensive monitoring for toxicity (Heparin, Nitro, Insulin, Cardizem)? @ -No Were any procedures done? @ -No Diagnosis/symptom? @ -GI bleed Acute, or Chronic, or Acute on Chronic? @ -Acute on chronic Uncomplicated (without systemic symptoms) or Complicated (systemic symptoms)? @ -Uncomplicated Side effects of treatment? @ -[none] Exacerbation, Progression, or Severe Exacerbation] @ -[no] Poses a threat to life or bodily function? @ -[no] - Lab Data Result diagrams: 06/15/22 21:24 06/15/22 21:24 Lab Results 06/15/22 06/15/22 06/15/22 Range/Units 21:24 21:24 21:24 WBC 5.9 (3.8-10.6) k/uL RBC 4.70 (4.30-5.90) m/uL Hgb 14.4 (13.0-17.5) gm/dL Hct 40.8 (39.0-53.0) % MCV 86.9 (80.0-100.0) fL MCH 30.7 (25.0-35.0) pg MCHC 35.3 (31.0-37.0) g/dL RDW 11.3 L (11.5-15.5) % Plt Count 147 L (150-450) k/uL MPV 8.4 Neutrophils % 58 % Lymphocytes % 32 % Monocytes % 5 % Eosinophils % 2 % Basophils % 1 % Neutrophils # 3.4 (1.3-7.7) k/uL Lymphocytes # 1.9 (1.0-4.8) k/uL Monocytes # 0.3 (0-1.0) k/uL Eosinophils # 0.1 (0-0.7) k/uL Basophils # 0.1 (0-0.2) k/uL PT 11.3 (9.0-12.0) sec INR 1.1 (<1.2) APTT 23.9 (22.0-30.0) sec Sodium (137-145) mmol/L Potassium (3.5-5.1) mmol/L Chloride (98-107) mmol/L Carbon Dioxide (22-30) mmol/L Anion Gap mmol/L BUN (9-20) mg/dL Creatinine (0.66-1.25) mg/dL Est GFR (CKD-EPI)AfAm (>60 ml/min/1.73 sqM) Est GFR (CKD-EPI)NonAf (>60 ml/min/1.73 sqM) Glucose (74-99) mg/dL Calcium (8.4-10.2) mg/dL Total Bilirubin (0.2-1.3) mg/dL AST (17-59) U/L ALT (4-49) U/L Alkaline Phosphatase (38-126) U/L Total Protein (6.3-8.2) g/dL Albumin (3.5-5.0) g/dL Stool Occult Blood Negative (Negative) 06/15/22 Range/Units 21:24 WBC (3.8-10.6) k/uL RBC (4.30-5.90) m/uL Hgb (13.0-17.5) gm/dL Hct (39.0-53.0) % MCV (80.0-100.0) fL MCH (25.0-35.0) pg MCHC (31.0-37.0) g/dL RDW (11.5-15.5) % Plt Count (150-450) k/uL MPV Neutrophils % % Lymphocytes % % Monocytes % % Eosinophils % % Basophils % % Neutrophils # (1.3-7.7) k/uL Lymphocytes # (1.0-4.8) k/uL Monocytes # (0-1.0) k/uL Eosinophils # (0-0.7) k/uL Basophils # (0-0.2) k/uL PT (9.0-12.0) sec INR (<1.2) APTT (22.0-30.0) sec Sodium 140 (137-145) mmol/L Potassium 3.9 (3.5-5.1) mmol/L Chloride 105 (98-107) mmol/L Carbon Dioxide 28 (22-30) mmol/L Anion Gap 7 mmol/L BUN 15 (9-20) mg/dL Creatinine 0.91 (0.66-1.25) mg/dL Est GFR (CKD-EPI)AfAm >90 (>60 ml/min/1.73 sqM) Est GFR (CKD-EPI)NonAf >90 (>60 ml/min/1.73 sqM) Glucose 75 (74-99) mg/dL Calcium 8.7 (8.4-10.2) mg/dL Total Bilirubin 0.5 (0.2-1.3) mg/dL AST 23 (17-59) U/L ALT 17 (4-49) U/L Alkaline Phosphatase 34 L (38-126) U/L Total Protein 6.7 (6.3-8.2) g/dL Albumin 4.2 (3.5-5.0) g/dL Stool Occult Blood (Negative) Disposition Clinical Impression: Rectal bleeding Disposition: HOME SELF-CARE Condition: Good Instructions (If sedation given, give patient instructions): Gastrointestinal Bleeding (ED) Additional Instructions: Follow-up with gastroenterology. Return to the emergency room with any new or concerning symptoms including increased bleeding, abdominal pain, chest pain or shortness of breath. Is patient prescribed a controlled substance at d/c from ED?: No Referrals: Dora Randall MD [Primary Care Provider] - 1-2 days Melissa Lozano MD [STAFF PHYSICIAN] - 1-2 days Time of Disposition: 22:04
[2022-06-15 21:34] LABS: Basophils # (A) 0.1 k/uL (0-0.2); Basophils % (A) 1 %; Eosinophils # (A) 0.1 k/uL (0-0.7); Eosinophils % (A) 2 %; HCT 40.8 % (39.0-53.0); HGB 14.4 gm/dL (13.0-17.5); Lymphocytes # (A) 1.9 k/uL (1.0-4.8); Lymphocytes % (A) 32 %; MCH 30.7 pg (25.0-35.0); MCHC 35.3 g/dL (31.0-37.0); MCV 86.9 fL (80.0-100.0); Mean Platelet Volume 8.4; Monocytes # (A) 0.3 k/uL (0-1.0); Monocytes % (A) 5 %; Neutrophils # (A) 3.4 k/uL (1.3-7.7); Neutrophils % (A) 58 %; Platelet Count 147 k/uL (150-450); RDW 11.3 % (11.5-15.5); WBC 5.9 k/uL (3.8-10.6)
[2022-06-15 21:44] LABS: ALT 17 U/L (4-49); AST 23 U/L (17-59); African American GFR (CKD) >90 (>60 ml/min/1.73 sqM); Albumin 4.2 g/dL (3.5-5.0); Alkaline Phosphatase 34 U/L (38-126); Anion Gap 7 mmol/L; Blood Urea Nitrogen 15 mg/dL (9-20); Calcium 8.7 mg/dL (8.4-10.2); Carbon Dioxide 28 mmol/L (22-30); Chloride 105 mmol/L (98-107); Glucose 75 mg/dL (74-99); Non-African American GFR(CKD) >90 (>60 ml/min/1.73 sqM); Potassium 3.9 mmol/L (3.5-5.1); Sodium 140 mmol/L (137-145); Total Bilirubin 0.5 mg/dL (0.2-1.3); Total Protein 6.7 g/dL (6.3-8.2)
[2022-06-15 21:56] LABS: INR 1.1 (<1.2); Partial Thromboplastin Time 23.9 sec (22.0-30.0); Prothrombin Time 11.3 sec (9.0-12.0)
[2022-06-15 23:03] VITALS: BP 120/78; PULSE 80
== END 2022-06-15 22:30 | disposition home or self-care (01) ==
LOC: EC 20:05
DX: K92.1 Melena (principal); F17.290 Nicotine dependence, other tobacco product, uncomplicated; F12.90 Cannabis use, unspecified, uncomplicated; Z88.2 Allergy status to sulfonamides
CPT/HCPCS: 36415; 80053; 82272; 85025; 85610; 85730; 99285

== ENCOUNTER 2022-12-05 10:21 | Emergency (ER) | payer OTHER ==
[2022-12-05 10:31] VITALS: BP 122/88; PULSE 80; RESP 18; TEMP 98
[2022-12-05] MEDS ORDERED: IBUPROFEN 800 MG TAB PO STA (10:45)
--- NOTE | 2022-12-05 10:51 | ED ---
General Adult HPI - General Chief complaint: Extremity Injury, Upper Stated complaint: Right shoulder injury Time Seen by Provider: 12/05/22 10:32 Source: patient, RN notes reviewed Mode of arrival: ambulatory Limitations: no limitations - History of Present Illness Initial comments: 27-year-old male with no significant past medical history presents to the emergency department with a chief complaint of right shoulder pain. Patient reports that he was long boarding last night when he went over a large crack in the sidewalk lost his balance. He reports that he fell and tried to roll however fell on his right shoulder. He is complaining of worsening generalized shoulder pain. He has not taken anything for his symptoms. Denies numbness, tingling, weakness in the extremity. Denies hitting his head, loss of consciousness, anticoagulant use. - Related Data Previous Rx's Medication Instructions Recorded Amoxicillin 500 mg PO Q8H #21 capsule 01/31/15 Clarithromycin [Biaxin] 500 mg PO Q12HR #14 tablet 01/31/15 Famotidine [Pepcid] 20 mg PO DAILY #60 tablet 01/31/15 Omeprazole [PriLOSEC] 20 mg PO AC-BID #60 cap 01/31/15 Famotidine [Pepcid] 20 mg PO DAILY #14 tablet 12/30/16 dexAMETHasone [Dexamethasone] 6 mg PO DAILY #10 tablet 04/17/21 guaiFENesin-DM 600/30MG [Mucinex 2 each PO Q12HR PRN #20 tab 04/17/21 Dm] Ibuprofen [Motrin] 600 mg PO Q8HR PRN #24 tab 02/03/22 Ibuprofen [Motrin] 800 mg PO Q6HR #30 tab 12/05/22 Allergies Allergy/AdvReac Type Severity Reaction Status Date / Time Sulfa (Sulfonamide Allergy Unknown Verified 12/05/22 10:31 Antibiotics) Review of Systems ROS Statement: Those systems with pertinent positive or pertinent negative responses have been documented in the HPI. ROS Other: All systems not noted in ROS Statement are negative. Past Medical History Past Medical History: Seizure Disorder Additional Past Medical History / Comment(s): Ulcer History of Any Multi-Drug Resistant Organisms: None Reported Past Surgical History: Ear Surgery Past Psychological History: No Psychological Hx Reported Smoking Status: Vaper Past Alcohol Use History: Occasional Past Drug Use History: Marijuana General Exam - General Exam Comments Initial Comments: General: Alert, in no acute distress Head: atraumatic normocephalic. Eyes PERRL, EOMI intact, mucous membranes moist Respiratory: Lungs clear to auscultation bilaterally Cardiovascular: Heart rate regular rate and rhythm Abdominal: Soft without guarding or rebound Extremities: Normal inspection with full range of motion and normal capillary refill, right shoulder with generalized tenderness. No obvious deformity. Limited range of motion secondary to pain 2+ radial pulses, distal neurovascularly intact Neuroogic: alert and oriented 3, CN II-XII intact, able to ambulate with steady gait Skin: warm dry and intact with normal color Limitations: no limitations Course Vital Signs 12/05/22 10:29 Temperature 98 F Pulse Rate 80 Respiratory 18 Rate Blood Pressure 122/88 O2 Sat by Pulse 98 Oximetry Medical Decision Making - Medical Decision Making Was pt. sent in by a medical professional or institution (YOSELIN Downey, ELECTRIC REFRIGERATOR SERVICER, urgent care, hospital, or long term...) When possible be specific @ -[No] Did you speak to anyone other than the patient for history (EMS, parent, family, police, friend...)? What history was obtained from this source @ -[No] Did you review nursing and triage notes (agree or disagree)? Why? @ -[I reviewed and agree with nursing and triage notes] Were old charts reviewed (outside hosp., previous admission, EMS record, old EKG, old radiological studies, urgent care reports/EKG's, long term records)? Report findings @ -[No old charts were reviewed] Differential Diagnosis (chest pain, altered mental status, abdominal pain women, abdominal pain men, vaginal bleeding, weakness, fever, dyspnea, syncope, headache, dizziness, GI bleed, back pain, seizure, CVA, palpatations, mental health, musculoskeletal)? @ -[not applicable] EKG interpreted by me (3pts min.). @ -[As above] X-rays interpreted by me (1pt min.). @ -Shoulder x-ray negative for any evidence of fracture or dislocation CT interpreted by me (1pt min.). @ -[None done] U/S interpreted by me (1pt. min.). @ -[None done] What testing was considered but not performed or refused? (CT, X-rays, U/S, labs)? Why? @ -[None] What meds were considered but not given or refused? Why? @ -[None] Did you discuss the management of the patient with other professionals (professionals i.e. , PA, ELECTRIC REFRIGERATOR SERVICER, lab, RT, psych nurse, manager social work, business librarian, teacher, fire prevention officer, community case manager)? Give summary @ -[No] Was smoking cessation discussed for >3mins.? @ -[No] Was critical care preformed (if so, how long)? @ -[No] Were there social determinants of health that impacted care today? How? (Homelessness, low income, unemployed, alcoholism, drug addiction, transportation, low edu. Level, literacy, decrease access to med. care, [facility]ci, rehab)? @ -[No] Was there de-escalation of care discussed even if they declined (Discuss DNR or withdrawal of care, Hospice)? DNR status @ -[No] What co-morbidities impacted this encounter? (DM, HTN, Smoking, COPD, CAD, Cancer, CVA, ARF, Chemo, Hep., AIDS, mental health diagnosis, sleep apnea, morbid obesity)? @ -[None] Was patient admitted / discharged? Hospital course, mention meds given and route, prescriptions, significant lab abnormalities, going to OR and other pertinent info. @ -Discharge. This is a 27-year-old male with no significant past medical history who presents to the emergency department with right shoulder pain. Patient had a thorough history and physical exam performed on the emergency department. Heart rate regular rate and rhythm, lungs clear to auscultation bilaterally, abdomen soft nontender. No obvious deformities, ecchymosis on exam. Patient able to move extremities freely. There is limited range of motion secondary to pain. 2+ radial pulses bilaterally distal neurovascularly intact There are no focal neuro deficits noted upon exam. Patient able to ambulate with steady gait and move Extremities freely Patient had lab work and imaging which revealed was negative. Discussed the results in detail with the patient verbalized understanding and all questions were addressed. She was given motrin with symptomatically relief in the emergency department. he'll be discharged home in stable condition with strict return precautions discussed. He was given a prescription for Motrin, and placed in a shoulder sling. Patient discharged in stable condition with recommended close follow-up with PCP in 1-2 days.. Case discussed with ASAEL Osorio who agrees with plan of care Undiagnosed new problem with uncertain prognosis? @ -[No] Drug Therapy requiring intensive monitoring for toxicity (Heparin, Nitro, Insuli n, Cardizem)? @ -[No] Were any procedures done? @ -[No] Diagnosis/symptom? @ - Right Shoulder Pain Acute, or Chronic, or Acute on Chronic? @ -Acute Uncomplicated (without systemic symptoms) or Complicated (systemic symptoms)? @ -Uncomplicated Side effects of treatment? @ -[No] Exacerbation, Progression, or Severe Exacerbation? @ -[No] Poses a threat to life or bodily function? How? (Chest pain, [place], [place], pneumonia, PE, COPD, DKA, ARF, appy, cholecystitis, CVA, Diverticulitis, Homicidal, Suicidal, threat to staff... and all critical care pts) @ -Low likelihood Disposition Clinical Impression: Right shoulder pain Disposition: HOME SELF-CARE Condition: Stable Additional Instructions: Please follow-up with with Orthopedist sometime this week Please use Tylenol and Motrin for pain as needed Please return to this emergency department if symptoms worsen or persist Prescriptions: Ibuprofen [Motrin] 800 mg PO Q6HR #30 tab Is patient prescribed a controlled substance at d/c from ED?: No Referrals: None,Stated [Primary Care Provider] - 1-2 days Dashawn Edmonds MD [STAFF PHYSICIAN] - 1-2 days Time of Disposition: 11:11
--- NOTE | 2022-12-05 11:05 | XR ---
EXAMINATION TYPE: XR shoulder complete RT DATE OF EXAM: 12/05/2022 COMPARISON: NONE HISTORY: Pain TECHNIQUE: Three views are submitted. FINDINGS: The osseous structures are intact. There is no acute fracture or dislocation. The AC joint is maint ained. IMPRESSION: 1. No acute process. If symptoms persist. Correlate with MRI.
== END 2022-12-05 10:35 | disposition home or self-care (01) ==
LOC: EC 10:21
DX: M25.511 Pain in right shoulder (principal); F17.290 Nicotine dependence, other tobacco product, uncomplicated; F12.90 Cannabis use, unspecified, uncomplicated; Z88.2 Allergy status to sulfonamides; W17.89XA Other fall from one level to another, initial encounter; Y92.480 Sidewalk as the place of occurrence of the external cause
CPT/HCPCS: 99283

== ENCOUNTER 2023-06-03 02:34 | Emergency (ER) | payer OTHER ==
[2023-06-03 02:53] VITALS: TEMP 97.8
--- NOTE | 2023-06-03 04:32 | ED ---
General Adult HPI - General Chief complaint: Recheck/Abnormal Lab/Rx Stated complaint: RECTAL SWELLING Time Seen by Provider: 06/03/23 03:55 Source: patient, RN notes reviewed, old records reviewed Mode of arrival: ambulatory Limitations: no limitations - History of Present Illness Initial comments: Patient is a 28-year-old male presents emergency Department with rectal pain. Has a history of hemorrhoids. He states he had a bowel movement at work and began expressing rectal pain. He is concerned that it may be swollen down there. His no acute point at this time. Presents for further evaluation. - Related Data Previous Rx's Medication Instructions Recorded Amoxicillin 500 mg PO Q8H #21 capsule 01/31/15 Clarithromycin [Biaxin] 500 mg PO Q12HR #14 tablet 01/31/15 Famotidine [Pepcid] 20 mg PO DAILY #60 tablet 01/31/15 Omeprazole [PriLOSEC] 20 mg PO AC-BID #60 cap 01/31/15 Famotidine [Pepcid] 20 mg PO DAILY #14 tablet 12/30/16 dexAMETHasone [Dexamethasone] 6 mg PO DAILY #10 tablet 04/17/21 guaiFENesin-DM 600/30MG [Mucinex 2 each PO Q12HR PRN #20 tab 04/17/21 Dm] Ibuprofen [Motrin] 600 mg PO Q8HR PRN #24 tab 02/03/22 Ibuprofen [Motrin] 800 mg PO Q6HR #30 tab 12/05/22 Docusate [Colace] 100 mg PO DAILY 14 Days #14 capsule 06/03/23 Lidocaine [Lidocaine Rectal Cream 1 applic TOPICAL BID PRN #30 gram 06/03/23 5%] Psyllium Husk [Metamucil] 0.4 gm PO DAILY 14 Days #14 capsule 06/03/23 witch Dash [Preparation H 1 applic TOPICAL BID PRN #14 pad 06/03/23 Pad/Wipe] Allergies Allergy/AdvReac Type Severity Reaction Status Date / Time Sulfa (Sulfonamide Allergy Unknown Verified 06/03/23 02:44 Antibiotics) Review of Systems ROS Statement: Those systems with pertinent positive or pertinent negative responses have been documented in the HPI. Review of Systems: CONST: Denies fever EYES: Denies blurry vision ENT: Denies nasal congestion C/V: Denies Chest pain RESP: Denies shortness of breath GI: Endorses rectal pain : Denies dysuria SKIN: Denies rash. MSK: Denies joint pain. NEURO: Denies headache ROS Other: All systems not noted in ROS Statement are negative. Past Medical History Past Medical History: Seizure Disorder Additional Past Medical History / Comment(s): Ulcer History of Any Multi-Drug Resistant Organisms: None Reported Past Surgical History: Ear Surgery Past Psychological History: No Psychological Hx Reported Smoking Status: Vaper Past Alcohol Use History: Occasional Past Drug Use History: Marijuana General Exam - General Exam Comments Initial Comments: General: Appears in no acute distress. HEAD: Normal with no signs of head trauma. EYES: EOMI. ENT: Hearing grossly intact. RESPIRATORY: No respiratory distress. C/V: Regular rate and rhythm. ABD: Abdomen is nondistended. Rectal exam revealed multiple external hemorrhoids that are not currently thrombosed. Appear uncomplicated. No bleeding. EXT: No obvious deformity. SKIN: No rashes or lesions observed on exposed skin. NEURO: Alert and oriented. Limitations: no limitations Course Vital Signs 06/03/23 02:43 Temperature 97.8 F Pulse Rate 79 Respiratory 18 Rate Blood Pressure 137/94 O2 Sat by Pulse 97 Oximetry Medical Decision Making - Medical Decision Making Was pt. sent in by a medical professional or institution (, YOSELIN, PRINTED CIRCUIT BOARD PANELS PLATER, urgent care, hospital, or intermediate...) When possible be specific @ -No Did you speak to anyone other than the patient for history (EMS, parent, family, police, friend...)? What history was obtained from this source @ -No Did you review nursing and triage notes (agree or disagree)? Why? @ -I reviewed and agree with nursing and triage notes Were old charts reviewed (outside hosp., previous admission, EMS record, old EKG, old radiological studies, urgent care reports/EKG's, intermediate records)? Report findings @ -No old charts were reviewed Differential Diagnosis (chest pain, altered mental status, abdominal pain women, abdominal pain men, vaginal bleeding, weakness, fever, dyspnea, syncope, headache, dizziness, GI bleed, back pain, seizure, CVA, palpatations, mental health, musculoskeletal)? @ -Hemorrhoids, rectal fissures. This list is not all inclusive. EKG interpreted by me (3pts min.). @ -None done X-rays interpreted by me (1pt min.). @ -None done CT interpreted by me (1pt min.). @ -None done U/S interpreted by me (1pt. min.). @ -None done What testing was considered but not performed or refused? (CT, X-rays, U/S, labs)? Why? @ -None What meds were considered but not given or refused? Why? @ -None Did you discuss the management of the patient with other professionals (professionals i.e. , PA, PRINTED CIRCUIT BOARD PANELS PLATER, lab, RT, psych nurse, director social service, station helper, teacher, administrative officer, lining caser)? Give summary @ -No Was smoking cessation discussed for >3mins.? @ -No Was critical care preformed (if so, how long)? @ -No Were there social determinants of health that impacted care today? How? (Homelessness, low income, unemployed, alcoholism, drug addiction, transportation, low edu. Level, literacy, decrease access to med. care, halfway, rehab)? @ -No Was there de-escalation of care discussed even if they declined (Discuss DNR or withdrawal of care, Hospice)? DNR status @ -No What co-morbidities impacted this encounter? (DM, HTN, Smoking, COPD, CAD, Cancer, CVA, ARF, Chemo, Hep., AIDS, mental health diagnosis, sleep apnea, morbid obesity)? @ -None Was patient admitted / discharged? Hospital course, mention meds given and route, prescriptions, significant lab abnormalities, going to OR and other pertinent info. @ -Based on the patient's presentation and physical exam, presents complaining of rectal pain. Rectal exam reveals multiple uncomplicated external hemorrhoids. I discussed this with the patient. Vital signs within acceptable limits. He will be given a dose of Motrin. I will also provide him with a prescription for remedies such as stool softeners, lidocaine rectal cream, Metamucil, Preparation H meds. Patient agreement this plan. Strict return precautions discussed. I instructed the patient to follow up with their PCP in the next 1-3 days. I explained that the patient should return to the emergency department if they experience any worsening symptoms. Strict return precautions were discussed with the patient. The patient expressed understanding of these instructions. I answered all questions that the patient had. The patient was discharged home in good condition with their prescriptions and follow up information. Undiagnosed new problem with uncertain prognosis? @ -No Drug Therapy requiring intensive monitoring for toxicity (Heparin, Nitro, Insulin, Cardizem)? @ -No Were any procedures done? @ -No Diagnosis/symptom? @ -External hemorrhoids Acute, or Chronic, or Acute on Chronic? @ -Acute Uncomplicated (without systemic symptoms) or Complicated (systemic symptoms)? @ -Uncomplicated Side effects of treatment? @ -No Exacerbation, Progression, or Severe Exacerbation? @ -No Poses a threat to life or bodily function? How? (Chest pain, [place], [place], pneumonia, PE, COPD, DKA, ARF, appy, cholecystitis, CVA, Diverticulitis, Homicidal, Suicidal, threat to staff... and all critical care pts) @ -No Disposition Clinical Impression: External hemorrhoids Disposition: HOME SELF-CARE Condition: Good Instructions (If sedation given, give patient instructions): Hemorrhoids (DC) Prescriptions: Docusate [Colace] 100 mg PO DAILY 14 Days #14 capsule Lidocaine [Lidocaine Rectal Cream 5%] 1 applic TOPICAL BID PRN #30 gram PRN Reason: Pain Psyllium Husk [Metamucil] 0.4 gm PO DAILY 14 Days #14 capsule witch Dash [Preparation H Pad/Wipe] 1 applic TOPICAL BID PRN #14 pad PRN Reason: Pain Is patient prescribed a controlled substance at d/c from ED?: No Referrals: None,Stated [Primary Care Provider] - 1-2 days Forms: Area PCPs Time of Disposition: 04:15
[2023-06-03] MEDS ORDERED: IBUPROFEN 800 MG TAB PO STA (04:52)
[2023-06-03 05:47] VITALS: BP 119/94; PULSE 93; RESP 16
== END 2023-06-03 05:07 | disposition home or self-care (01) ==
LOC: EC 02:34
DX: K64.4 Residual hemorrhoidal skin tags (principal); F17.290 Nicotine dependence, other tobacco product, uncomplicated; F12.90 Cannabis use, unspecified, uncomplicated; Z88.2 Allergy status to sulfonamides
CPT/HCPCS: 99283

== ENCOUNTER 2024-02-22 11:44 | Emergency (ER) | payer SELFPAY ==
[2024-02-22 11:52] VITALS: RESP 16
--- NOTE | 2024-02-22 12:59 | ED ---
General Adult HPI - General Chief complaint: Abdominal Pain Stated complaint: GI symptoms Time Seen by Provider: 02/22/24 12:00 Source: patient, RN notes reviewed, old records reviewed Mode of arrival: ambulatory Limitations: no limitations - History of Present Illness Initial comments: Is a 28-year-old male who presents to the emergency department complaining of tenderness around his anus with a bulging of the area. Patient states he has longstanding history of hemorrhoids. Patient states he thinks his hemorrhoids but it is worse than normal. Patient denies any abdominal pain patient has any rectal bleeding. Patient is any fever chills. - Related Data Previous Rx's Medication Instructions Recorded Amoxicillin 500 mg PO Q8H #21 capsule 01/31/15 Clarithromycin [Biaxin] 500 mg PO Q12HR #14 tablet 01/31/15 Famotidine [Pepcid] 20 mg PO DAILY #60 tablet 01/31/15 Omeprazole [PriLOSEC] 20 mg PO AC-BID #60 cap 01/31/15 Famotidine [Pepcid] 20 mg PO DAILY #14 tablet 12/30/16 dexAMETHasone [Dexamethasone] 6 mg PO DAILY #10 tablet 04/17/21 guaiFENesin-DM 600/30MG [Mucinex 2 each PO Q12HR PRN #20 tab 04/17/21 Dm] Ibuprofen [Motrin] 600 mg PO Q8HR PRN #24 tab 02/03/22 Ibuprofen [Motrin] 800 mg PO Q6HR #30 tab 12/05/22 Docusate [Colace] 100 mg PO DAILY 14 Days #14 capsule 06/03/23 Lidocaine [Lidocaine Rectal Cream 1 applic TOPICAL BID PRN #30 gram 06/03/23 5%] Psyllium Husk [Metamucil] 0.4 gm PO DAILY 14 Days #14 capsule 06/03/23 witch Dash [Preparation H 1 applic TOPICAL BID PRN #14 pad 06/03/23 Pad/Wipe] Hydrocortisone Suppository 25 mg RECTAL BID #20 suppositor 02/22/24 [Anusol-Hc] Ibuprofen [Motrin] 600 mg PO Q6HR PRN #20 tab 02/22/24 Allergies Allergy/AdvReac Type Severity Reaction Status Date / Time Sulfa (Sulfonamide Allergy Unknown Verified 06/03/23 02:44 Antibiotics) Review of Systems ROS Statement: Those systems with pertinent positive or pertinent negative responses have been documented in the HPI. ROS Other: All systems not noted in ROS Statement are negative. Past Medical History Past Medical History: Seizure Disorder Additional Past Medical History / Comment(s): Ulcer, hemorrhoids History of Any Multi-Drug Resistant Organisms: None Reported Past Surgical History: Ear Surgery Past Psychological History: No Psychological Hx Reported Smoking Status: Vaper Past Alcohol Use History: Occasional Past Drug Use History: Marijuana General Exam - General Exam Comments Initial Comments: GENERAL: Patient is well-developed and well-nourished. Patient is nontoxic and well- hydrated and is in no acute distress. ENT: Neck is soft and supple. No significant lymphadenopathy is noted. Oropharynx is clear. Moist mucous membranes. Neck has full range of motion without eliciting any pain. EYES: The sclera were anicteric and conjunctiva were pink and moist. Extraocular movements were intact and pupils were equal round and reactive to light. Eyelids were unremarkable. RECTAL: Patient's anus has a large external hemorrhoid that is not thrombosed at this time is tender to palpation. SKIN: Skin is clear with no lesions or rashes and otherwise unremarkable. NEUROLOGIC: Patient is alert and oriented x3. Cranial nerves II through XII are grossly intact. Motor and sensory are also intact. Normal speech, volume and content. Symmetrical smile. MUSCULOSKELETAL: Normal extremities with adequate strength and full range of motion. LYMPHATICS: No significant lymphadenopathy is noted PSYCHIATRIC: Normal psychiatric evaluation. Limitations: no limitations Course Vital Signs 02/22/24 11:50 Temperature 97.6 F Pulse Rate 75 Respiratory 16 Rate Blood Pressure 122/82 O2 Sat by Pulse 98 Oximetry Medical Decision Making - Medical Decision Making Was pt. sent in by a medical professional or institution (, PA, BOOKBINDER CHIEF, urgent care, hospital, or penitentiary...) When possible be specific @ -No Did you speak to anyone other than the patient for history (EMS, parent, family, police, friend...)? What history was obtained from this source @ -No Did you review nursing and triage notes (agree or disagree)? Why? @ -I reviewed and agree with nursing and triage notes Were old charts reviewed (outside hosp., previous admission, EMS record, old EKG, old radiological studies, urgent care reports/EKG's, penitentiary records)? Report findings @ -No old charts were reviewed Differential Diagnosis? @ -Internal hemorrhoids, external hemorrhoids, abscess, rectal prolapse, this is not an all-inclusive list EKG interpreted by me (3pts min.). @ -As above X-rays interpreted by me (1pt min.). @ -None done CT interpreted by me (1pt min.). @ -None done U/S interpreted by me (1pt. min.). @ -None done What testing was considered but not performed or refused? (CT, X-rays, U/S, labs)? Why? @ -None What meds were considered but not given or refused? Why? @ -None Did you discuss the management of the patient with other professionals (professionals i.e. Dr., PA, BOOKBINDER CHIEF, lab, RT, psych nurse, clinical social work aide, bilingual instructor, teacher, aoc aadc operations staff officer, piano case maker)? Give summary @ -No Was smoking cessation discussed for >3mins.? @ -No Was critical care preformed (if so, how long)? @ -No Were there social determinants of health that impacted care today? How? (Homelessness, low income, unemployed, alcoholism, drug addiction, transportation, low edu. Level, literacy, decrease access to med. care, prison, rehab)? @ -No Was there de-escalation of care discussed even if they declined (Discuss DNR or withdrawal of care, Hospice)? DNR status @ -No What co-morbidities impacted this encounter? (DM, HTN, Smoking, COPD, CAD, Cancer, CVA, ARF, Chemo, Hep., AIDS, mental health diagnosis, sleep apnea, morbid obesity)? @ -None Was patient admitted / discharged? Hospital course, mention meds given and route, prescriptions, significant lab abnormalities, going to OR and other pertinent info. @ -Patient has a nonthrombosed external hemorrhoid which is painful. Undiagnosed new problem with uncertain prognosis? @ -No Drug Therapy requiring intensive monitoring for toxicity (Heparin, Nitro, Insulin, Cardizem)? @ -No Were any procedures done? @ -No Diagnosis/symptom? @ -External hemorrhoid Acute, or Chronic, or Acute on Chronic? @ -Acute Uncomplicated (without systemic symptoms) or Complicated (systemic symptoms)? @ -Uncomplicated Side effects of treatment? @ -No Exacerbation, Progression, or Severe Exacerbation? @ -No Poses a threat to life or bodily function? How? (Chest pain, [place], [place], pneumonia, PE, COPD, DKA, ARF, appy, cholecystitis, CVA, Diverticulitis, Homicidal, Suicidal, threat to staff... and all critical care pts) @ -No Disposition Clinical Impression: External hemorrhoid Disposition: HOME SELF-CARE Condition: Good Instructions (If sedation given, give patient instructions): Hemorrhoids (ED) Additional Instructions: Patient should takes sitzs baths 3 times a day Patient should use dash after every bowel movement. Patient should use Anusol and Motrin as prescribed Patient should take Benefiber twice a day Patient should follow-up with her Prescriptions: Hydrocortisone Suppository [Anusol-Hc] 25 mg RECTAL BID #20 suppositor Ibuprofen [Motrin] 600 mg PO Q6HR PRN #20 tab PRN Reason: For pain Is patient prescribed a controlled substance at d/c from ED?: No Referrals: None,Stated [Primary Care Provider] - 1-2 days Juan Connor MD [Medical Doctor] - 1-2 days Time of Disposition: 12:54
[2024-02-22 13:44] VITALS: BP 124/79; PULSE 74; TEMP 97.9
== END 2024-02-22 13:42 | disposition home or self-care (01) ==
LOC: EC 11:44
CPT/HCPCS: 99284